=== PATIENT | female | born 2005 | race Caucasian/White ===

== ENCOUNTER 2025-01-05 23:46 | Emergency (ER) | payer OTHER ==
[~2025-01-05] VITALS: Ht 149.9 cm; Wt 75.2 kg
[2025-01-06 00:15] VITALS: BP 150/106; PULSE 87; RESP 18; TEMP 98.7; O2SAT 97
--- NOTE | 2025-01-06 00:24 | ED.PDOC ---
FORGING DIES FINAL FINISHER HPI Comments 20-year-old female presents to ER with complaints of vaginal pain x3 days. Patient reports that she has been experiencing red painful "blisters" to vaginal area x3 days. Notes that she currently monogamous with her boyfriend only without the use of a protection x 6 months. Patient states she did f/u with an urgent care provider prior to arrival to ER and states a urinalysis test was only done at that time that was "normal". Patient presents to ER afebrile, ambulatory, with steady gait, in no distress. Denies fever, body aches, chills, nausea/vomiting, headache, joint pain, abdominal/pelvic pain, vaginal discharge, changes in urination or any further symptoms/complain Chief Complaint: Vaginal Discharge Time Seen by MD: 23:56 Primary Care Provider: DAMARIS Killian Notes: Nurses Notes, Medications, Allergies Allergies: Coded Allergies: NO KNOWN ALLERGIES (Unverified , 01/05/25) Home Meds Active Scripts Acyclovir (Zovirax) 400 Mg Tb, 400 MG PO TID for 7 Days, #21 TAB 0 Refills Prov:DIDIER CAPUTO 01/06/25 Acetaminophen (Acetaminophen) 500 Mg Tab, 500 MG PO Q4HPRN, #30 TAB 0 Refills Prov:DIDIER CAPUTO 01/06/25 Information Source: Patient Mode of Arrival: Ambulatory Past Medical History PAST MEDICAL HISTORY: Denies Surgical History: Denies all surgeries DRESS CAP MAKER History: No Pertinent DRESS CAP MAKER History Family History Family History: Unknown Social History Smoker: Non-Smoker Alcohol: Denies ETOH Use Drugs: Denies Drug Use Lives In: Home Constitutional: denies: chills, diaphoresis, fatigue, fever, malaise, sweats, weakness, others EENTM: denies: blurred vision, double vision, ear bleeding, ear discharge, ear drainage, ear pain, ear ringing, eye pain, eye redness, hearing loss, mouth pain, mouth swelling, nasal discharge, nose bleeding, nose congestion, nose pain, photophobia, tearing, throat pain, throat swelling, voice changes, others Respiratory: denies: cough, hemoptysis, orthopnea, SOB at rest, shortness of breath, SOB with excertion, stridor, wheezing, others Cardiovascular: denies: chest pain, dizzy spells, diaphoresis, Dyspnea on exertion, edema, irregular heart beat, left arm pain, lightheadedness, palpitations, PND, syncope, others Gastrointestinal: denies: abdomen distended, abdominal pain, blood streaked bowels, constipated, diarrhea, dysphagia, difficulty swallowing, hematemesis, melena, nausea, poor appetite, poor fluid intake, rectal bleeding, rectal pain, vomiting, others Genitourinary: reports: others (As stated in HPI) Neurological: denies: dizziness, fainting, headache, left sided numbness, left sided weakness, numbness, paresthesia, pre-existing deficit, right sided numbness, right sided weakness, seizure, speech problems, tingling, tremors, weakness, others Musculoskeletal: denies: back pain, gout, joint pain, joint swelling, muscle pain, muscle stiffness, neck pain, others Integumetry: reports: others (As stated in HPI) Allergic/Immunocompromised: denies: Difficulty Healing, Frequent Infections, Hives, Itching, others Hematologic/Lymphatic: denies: anemia, blood clots, easy bleeding, easy brui sing, swollen glands, others Endocrine: denies: excessive hunger, excessive sweating, excessive thirst, ex cessive urination, flushing, intolerance to cold, intolerance to heat, unexplained weight gain, unexplained weight loss, others Psychiatric: denies: anxiety, bipolar disorder, depression, hopeless, panic disorder, schizophrenia, sleepless, suicidal, others Physical Exam General Appearance: No Apparent Distress, Obese HEENT: Normal ENT Inspection, PERRL/EOMI, Pharynx Normal, TMs Normal Neck: Full Range of Motion, Non-Tender, Normal Respiratory: Chest Non-Tender, Lungs Clear, No Accessory Muscle Use, No Respiratory Distress, Normal Breath Sounds Cardiovascular: No Murmur, No Gallop, Regular Rate/Rhythm Breast Exam: Deferred Gastrointestinal: Non Tender, No Pulsatile Mass, Soft Genitalia: Other (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 No purulent drainage or vesicles noted. No inguinal lymphadenopathy noted. No vaginal discharge appreciated.) Pelvic: Deferred Rectal: Deferred Extremities: Normal capillary refill, Normal range of motion Neurologic: Alert, church official II-XII nml as Tested, No Motor Deficits, Normal Affect, Normal Mood, No Sensory Deficits Cerebellar Function: Normal Reflexes: Normal Skin: Dry, Warm Lymphatic: No Adenopathy Was a procedure done? Was a procedure done?: No Sedation Sedation?: No Differential Diagnosis (DRESS CAP MAKER) Vaginal Bleeding: PID Mass / Lesion: Bartholin Abscess Vaginal Discharge: Physiologic Discharge, X-Ray, Labs, Meds, VS Vital Signs Date Time Temp Pulse Resp B/P (MAP) Pulse Ox O2 Delivery O2 Flow Rate FiO2 01/06/25 00:15 98.7 87 18 150/106 (121) 97 98.7 01/06/25 00:15 Room Air* 0 21 01/05/25 23:50 98.7 87 18 150/106 97 98.7 Lab Test 01/06/25 00:22 01/05/25 23:56 Range/Units Treponema pallidum Antibody Non-reactive Negative HIV (1&2) Antibody Pending Urine Color Light-yellow Yellow Urine Clarity Clear Clear Urine pH 6.0 5.0-9.0 Urine Specific [place] 1.024 1.001-1.035 Urine Protein Negative Negative Urine Ketones Negative Negative Urine Blood Negative Negative /uL Urine Nitrite Negative Negative Urine Bilirubin Negative Negative Urine Urobilinogen Normal Negative mg/dL Urine Leukocyte Esterase Negative Negative /uL Urine RBC None seen 0 - 4 /hpf Urine Microscopic WBC 3 0-5 /HPF Urine Squamous Epithelial Cells Few <5 /hpf Urine Bacteria None seen None Seen /hpf Urine Mucus Few None Seen Urine Glucose Normal Normal mg/dL Urine Test Negative Negative Urinalysis reviewed-unremarkable Urine reviewed-negative Syphilis screening reviewed - non reactive HIV testing ordered Safe sex practices discussed and advised and patient was advised to avoid sexual contact until lesions are fully healed Patient states she is going to follow up tomorrow with her PCP with regards to further STD testing and was also advised to discussed having her partner notified/tested for STDs Advised to follow up with PCP in 1-2 days Patient verbalized understanding and agreeable with current plan of care Advised to return to ER immediately if symptoms worsen Time of 1ST Reevaluation: 00:02 Reevaluation 1ST: N/A Patient Education/Counseling: Diagnosis, Treatment, Prognosis, Need For Follow Up Family Education/Counseling: No Family Present Departure 1 Departure Time of Disposition: 00:27 Impression: Primary Impression: Genital HSV Qualified Codes: A60.00 - Herpesviral infection of urogenital system, unspecified Disposition: 01 HOME / SELF CARE / HOMELESS Condition: Stable e-Prescriptions Acyclovir (Zovirax) 400 Mg Tb 400 MG PO TID for 7 Days, #21 TAB 0 Refills Prov: DIDIER CAPUTO 01/06/25 Acetaminophen (Acetaminophen) 500 Mg Tab 500 MG PO Q4HPRN, #30 TAB 0 Refills Prov: DIDIER CAPUTO 01/06/25 Critical Care Note Critical Care Time?: No Stability Stability form required: No Heart Score Heart Score: Heart Score Response (Comments) Value History N/A 0 EKG N/A 0 Age N/A 0 Risk Factors N/A 0 Troponin N/A 0 Total 0 DIDIER CAPUTO Jan 06, 2025 00:24
[2025-01-06 00:25] LABS: Urine Protein, UAD Negative (Negative)
[2025-01-06] MEDS ORDERED: ACYC1TAB PO (00:29)
[2025-01-06] MEDS ORDERED: ACET500T58 PO (00:29)
== END 2025-01-06 02:09 | disposition home or self-care (01) ==
LOC: ER 23:46
DX: A60.09 Herpesviral infection of other urogenital tract (principal)
CPT/HCPCS: 36415; 81001; 81025; 86703; 86780